=== PATIENT | male | born 1975 ===

== ENCOUNTER 2024-02-06 10:57 | Emergency (ER) | payer SELFPAY ==
[2024-02-06 11:06] VITALS: BP 138/90; PULSE 86; TEMP 36.5; O2SAT 98
--- NOTE | 2024-02-06 13:17 | ED_ITS ---
HPI - Back Pain/Injury 2 General: Chief Complaint: Back Pain/Injury Stated Complaint: Both arms are numb--back pain Time Seen by Provider: 02/06/24 13:16 History of Present Illness: 48-year-old male presents with paresthes ias in his bilateral upper arms for at least the last 3 months. He reports that has been getting worse over the last couple weeks. He reports that it gets worse if he extends his neck backwards. He also complains of some muscle spasms in his back. Patient reports when he sleeps at night his arm numbness gets a lot worse. Patient denies any acute injury. Associated symptoms: Deny abdominal pain, chills, fever(s), nausea or vomiting Related Data Previous Rx's Medication Instructions Recorded cyclobenzaprine 10 mg tablet 10 mg PO BID PRN muscle spasm #20 02/06/24 tabs cyclobenzaprine 10 mg tablet 10 mg PO BID PRN muscle spasm #20 02/06/24 tabs naproxen 500 mg tablet (Naprosyn) 500 mg PO BID PRN pain #30 tabs 02/06/24 naproxen 500 mg tablet (Naprosyn) 500 mg PO Q12H PRN pain #30 tabs 02/06/24 Allergies Allergy/AdvReac Type Severity Reaction Status Date / Time No Known Allergies Allergy Verified 02/06/24 11:09 Review of Systems 2 Const: Denies: fever(s) or chills Card: Denies: chest pain or palpitations Resp: Denies: dyspnea or productive cough GI: Denies: abdominal pain, nausea or vomiting : Denies: flank pain Musc: Reports: neck pain and back pain Neuro: Reports: numbness in extremities (Bilateral upper) Psych: Denies: anxiety or depression Physical Exam 2 Const: COMMON NORMALS: no acute distress, average body habitus and patient oriented x3 HENMT: COMMON NORMALS: normocephalic and atraumatic HEAD & SCALP: n ormocephalic and atraumatic Neck/C-Spine: COMMON NORMALS: supple and no meningeal signs CERVICAL SPINE: No Cervical spine tenderness and Yes Paracervical spasm Cardio: COMMON NORMALS: regular rate and regular rhythm RATE: regular rate RHYTHM: regular rhythm GI: COMMON NORMALS: Soft to palpation and non-tender PALPATION: Yes Soft to palpation Extremity: COMMON NORMALS: normal to inspection and full ROM Neuro: COMMON NORMALS: patient oriented x3, moves all extremities and gait normal MENINGEAL SIGNS: Yes no meningeal signs SPEECH: speech normal S ENSORY EXAM: Yes extremities (Bilateral upper arms, numbness with neck extension) MOTOR EXAM: 5/5 motor strength present throughout Psych: COMMON NORMALS: mental status grossly normal and cooperative Skin: COMMON NORMALS: no rashes or lesions noted GENERAL SKIN EXAM: no rashes or lesions noted Course 2 Vital Signs: Vital signs: Vital Signs Temperature 97.7 F 02/06/24 11:06 Pulse Rate 75 02/06/24 14:39 Respiratory Rate 16 02/06/24 14:39 Blood Pressure 121/78 02/06/24 14:39 Pulse Oximetry 95 02/06/24 14:39 Oxygen Delivery Me thod Room Air 02/06/24 14:39 MDM - Back Pain/Injury Medical Decision Making Patient diagnostic studies were ordered reviewed and no acute findings noted. Patient's x-ray of his neck shows C3-C4 degenerative changes which may be contributing to his discomfort. Discussed with him where this been going on for couple months and worsening he needs to follow-up with primary care provider. They can then determine if they want to start with advanced imaging such as an MRI, consultation with orthopedic or back specialist or physical therapy. Patient will be provided muscle relaxant and anti-inflammatory. I also discussed with him the need for proper pillow to help with posture as well as good posture to help with the symptoms and is at gets worse with extension. Patient was stable and discharged home Labs 02/06/24 13:39 02/06/24 13:39 Radiology Impressions Cervical Spine X-Ray 02/06/24 13:24 IMPRESSION: 1. No acute findings. 2. Mild C3-C4 degenerative change. Laboratory Results WBC 6.72 10^3/uL (3.29-11.43) 02/06/24 13:39 RBC 4.84 10^6/uL (3.85-5.65) 02/06/24 13:39 Hgb 13.60 g/dL (11.27-16.99) 02/06/24 13:39 Hct 41.7 % (37-53) 02/06/24 13:39 MCV 86.2 fl (82-101) 02/06/24 13:39 MCH 28.1 pg (27-33) 02/06/24 13:39 MCHC 32.6 g/dL (30-55) 02/06/24 13:39 RDW 13.0 % (12.1-15.1) 02/06/24 13:39 Plt Count 232 10^3/cmm (157-399) 02/06/24 13:39 MPV 9.3 fL (7.4-10.4) 02/06/24 13:39 Neut % (Auto) 72.8 % 02/06/24 13:39 Lymph % (Auto) 13.7 % 02/06/24 13:39 [place] % (Auto) 9.7 % 02/06/24 13:39 Eos % (Auto) 2.5 % 02/06/24 13:39 Baso % (Auto) 0.9 % 02/06/24 13:39 Neut # (Auto) 4.89 10^3/uL (1.8-7.7) 02/06/24 13:39 Lymph # (Auto) 0.9 10^3/uL (0.8-4.8) 02/06/24 13:39 [place] # (Auto) 0.7 10^3/uL (0.2-0.9) 02/06/24 13:39 Eos # (Auto) 0.2 10^3/uL (0.0-0.8) 02/06/24 13:39 Baso # (Auto) 0.1 10^3/uL (0.0-0.1) 02/06/24 13:39 Nucleated RBC % (auto) 0 % 02/06/24 13:39 Nucleated RBCs # 0.0 /100WBC 02/06/24 13:39 Sodium 136 mmol/L (136-145) 02/06/24 13:39 Potassium 4.6 mmol/L (3.5-5.1) 02/06/24 13:39 Chloride 102 mmol/L (98-107) 02/06/24 13:39 Carbon Dioxide 25 mmol/L (22-29) 02/06/24 13:39 Anion Gap 13.6 (5-19) 02/06/24 13:39 BUN 14 mg/dL (6-20) 02/06/24 13:39 Creatinine 0.6 mg/dL (0.7-1.2) L 02/06/24 13:39 GFR Calculation 142.6 mL/min (90-130) H 02/06/24 13:39 Glucose 96 mg/dL (65-115) 02/06/24 13:39 Calculated Osmolality 282 mOsm/kg (285-295) L 02/06/24 13:39 Calcium 8.0 mg/dL (8.5-10.5) L 02/06/24 13:39 Magnesium 2.1 mg/dL (1.7-2.3) 02/06/24 13:39 TSH 2.09 uIU/mL (0.27-4.20) 02/06/24 13:39 All radiology interpretation(s) finalized by discharge Discharge Plan Discharge Patient Disposition: Home Clinical Impression: Cervical radiculopathy due to degenerative joint disease of spine, Paresthesia and pain of both upper extremities Condition: Stable Prescriptions: New cyclobenzaprine 10 mg tablet 10 mg PO BID PRN (Reason: muscle spasm) Qty: 20 0RF Naprosyn 500 mg tablet 500 mg PO BID PRN (Reason: pain) Qty: 30 0RF naproxen [Naprosyn] 500 mg tablet 500 mg PO Q12H PRN (Reason: pain) Qty: 30 0RF cyclobenzaprine 10 mg tablet 10 mg PO BID PRN (Reason: muscle spasm) Qty: 20 0RF Discharge Orders: Discharge ED (Routine); Ordered 02/06/24 Ordered By: Piyush Treviño Discharge Diet: Usual diet Discharge Activity: Increase activity as tolerated Patient Instructions: Paresthesia (ED), Cervical Radiculopathy (ED), Arthritis (ED), Opioid Safety, Pain Management Activity Restrictions/Additional Instructions: Please establish care with a primary care provider for further outpatient evaluation or follow-up to personal protection specialist for further evaluation. Please consider physical therapy. Please be sure you are using proper posture and a good pillow for neck support. Coding Level of Care Code ED Teaching Manager for Yahir Leahy
--- NOTE | 2024-02-06 13:24 | XRR_ITS ---
PROCEDURE INFORMATION: Exam: XR Cervical Spine Exam date and time: 02/06/2024 2:30 PM Age: 48 years old Clinical indication: Other: Paresthesia TECHNIQUE: Imaging protocol: Radiologic exam of the cervical spine. Views: 2 or 3 views. COMPARISON: No relevant prior studies available. FINDINGS: Bones/joints: Partially obscured C7 vertebra on lateral view from superimposed structures. No acute fracture. Normal alignment. Mild discovertebral degenerative change at C3-C4. Remaining intervertebral disc spaces are preserved. Soft tissues: Unremarkable. XR/XR cervical spine 3V* [id number] IMPRESSION: 1. No acute findings. 2. Mild C3-C4 degenerative change.
[2024-02-06] MEDS: ketorolac 30 mg/mL INJ IM (13:35)
[2024-02-06] MEDS: orphenadrine 30 mg/mL Inj 2 mL 60 MG IM (13:36)
[2024-02-06 14:02] LABS: Basophils # 0.1 10^3/uL (0.0-0.1); Basophils % 0.9 %; Eosinophils # 0.2 10^3/uL (0.0-0.8); Eosinophils % 2.5 %; Hematocrit 41.7 % (37-53); Lymphocytes # 0.9 10^3/uL (0.8-4.8); Lymphocytes % 13.7 %; Mean Corpuscular HGB Conc 32.6 g/dL (30-55); Mean Corpuscular Hemoglobin 28.1 pg (27-33); Mean Corpuscular Volume 86.2 fl (82-101); Mean Platelet Volume 9.3 fL (7.4-10.4); Monocytes # 0.7 10^3/uL (0.2-0.9); Monocytes % 9.7 %; Neutrophils # 4.89 10^3/uL (1.8-7.7); Neutrophils % 72.8 %; Nucleated Red Blood Cells % 0 %; Platelet Count 232 10^3/cmm (157-399); Red Blood Count 4.84 10^6/uL (3.85-5.65); White Blood Count 6.72 10^3/uL (3.29-11.43)
[2024-02-06 14:35] LABS: Anion Gap 13.6 (5-19); Blood Urea Nitrogen 14 mg/dL (6-20); Carbon Dioxide 25 mmol/L (22-29); Chloride 102 mmol/L (98-107); Glomerular Filtration Rate 142.6 mL/min (90-130); Glucose 96 mg/dL (65-115); Magnesium 2.1 mg/dL (1.7-2.3); Osmolality Calculated 282 mOsm/kg (285-295); Potassium 4.6 mmol/L (3.5-5.1); Sodium 136 mmol/L (136-145); Thyroid Stimulating Hormone 2.09 uIU/mL (0.27-4.20)
[2024-02-06 14:39] VITALS: BP 121/78; PULSE 75; RESP 16; O2SAT 95
[2024-02-06 15:51] VITALS: BP 127/83; PULSE 74; RESP 16; O2SAT 95
== END 2024-02-06 15:53 | disposition home or self-care (01) ==
PROVIDERS: Emergency Provider Student in an Organized Health Care Education/Training Program
DX: M47.22 Other spondylosis with radiculopathy, cervical region (principal); R20.2 Paresthesia of skin
CPT/HCPCS: 36415; 72040; 80048; 83735; 84443; 85025; 96372; 99284; J1885; J2360

== ENCOUNTER → 2024-04-12 09:04 | Outpatient (BNVA) | payer BC, MEDICAID, SELFPAY | PROVIDERS: PCP Nurse Practitioner Family; Visit Provider Physician Assistant | DX: G56.03 Carpal tunnel syndrome, bilateral upper limbs (principal); G56.23 Lesion of ulnar nerve, bilateral upper limbs | CPT/HCPCS: 73110 ==

== ENCOUNTER 2024-05-09 07:25 | Outpatient (CLI) | payer MEDICAID, SELFPAY ==
--- NOTE | 2024-05-09 07:15 | MR_ITS ---
WS: [id number] MRI HEAD WITHOUT CONTRAST TECHNIQUE: Sagittal T1, T2 axial, T2 axial FLAIR, axial and coronal T1 images, axial susceptibility w eighted imaging, axial diffusion weighted images, and coronal T2 images were obtained. 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 Oth erwise no evidence of acute ischemia. Few patchy foci of T2 hyperintensity in the LEFT frontal subcortical and parasagittal white matter an d LEFT inferior frontal lobe nonspecific but can be seen with migraine headaches. This is unchanged f rom previous. No significant parenchymal volume loss. No hemosiderin on the susceptibility weighted i mages. Normal optic chiasm and pituitary infundibulum. Temporal lobes and hippocampal formations are normal in appearance. Suggestion of a small amount of T2 hyperintensity in the RIGHT medullary olive. Normal posterior fossa. Normal vascular flow voids at the skull base. No extra-axial fluid collection s. No evidence of mass or mass effect. Mucosal thickening LEFT mastoid tip. Retention cyst RIGHT maxi llary sinus measuring 1.5 cm. Small amount of fluid in the LEFT maxillary sinus. Normal posterior regina opharynx. MR/MR head wo con* [id number] IMPRESSION: 1. Tiny focus of partially restricted diffusion in the RIGHT frontal lobe late rally most likely artifact. Otherwise no evidence of restricted diffusion to villarreal ggest acute ischemia. 2. Few small foci of T2 hyperintensity in the frontal subcortical white matter unchanged from previous nonspecific in a patient this age but can be seen with migraine headaches. 3. Subtle T2 hyperintensity in the RIGHT medullary olive. This can be seen wit h Guillain-Reynolds variant such as BBE. 4. No other acute findings.
== END 2024-05-09 07:26 | disposition home or self-care (01) ==
LOC: RAD 07:26
PROVIDERS: PCP Nurse Practitioner Family; Visit Provider Specialist
DX: G61.0 Guillain-Barre syndrome (principal); G62.89 Other specified polyneuropathies; R93.0 Abnormal findings on diagnostic imaging of skull and head, not elsewhere classified; K11.6 Mucocele of salivary gland
CPT/HCPCS: 70551

== ENCOUNTER 2024-05-14 12:40 | Day surgery (SDC) | payer BC, MEDICAID, SELFPAY ==
[2024-05-14] VITALS (12 sets, daily range): BP systolic 117–142; BP diastolic 73–98; PULSE 60–84; RESP 11–18; TEMP 36.1–36.9; O2SAT 96–99; BMI 32.3
--- NOTE | 2024-05-14 13:13 | P.HP_ITS ---
Same Day Surgery H&P Indication for Procedure/HPI DATE OF PROCEDURE: May 14, 2024 CHIEF COMPLAINT/INDICATIONFOR SURGICAL PROCEDURE: Right carpal tunnel syndrome, right cubital tunnel syndrome PREOP DIAGNOSIS: Right carpal tunnel syndrome, right cubital tunnel syndrome PLANNED PROCEDURE: Operation Date: 05/14/24 15:05 Proposed Procedures p Carpal Tunnel Release(Right) - Garrett Jovani, DO s Cubital Tunnel Release(Right) - Garrett [place]oyelles, DO s Ulnar Nerve Transposition(Right) - Garrett Jovani, DO Medications/Allergies* Allergies/Adverse Reactions Allergy/AdvReac Type Severity Reaction Status Date / Time No Known Allergies Allergy Verified 05/04/24 15:52 Pertinent History/Comorbid Conditions* Social History Smoking and tobacco/nicotine status: current every day tobacco/nicotine user (1/2 PPD) cigarettes Alcohol intake: never Substance/Drug Use: never Adopted: No Caregiver/support person: No Lives independently: No service: No Current occupational status: employed Do you think of yourself as: Straight/Heterosexual Current gender identity: Male Pertinent Exam Findings alert, oriented x 3, operative site marked and procedure specific exam findings Patient had a significantly positive Tinel's over the right carpal tunnel syndrome and the right cubital tunnel syndrome. Patient complains of all 5 of his fingers going numb. Please refer to the detailed orthopedic examination on 04/12/2024 listed below: bilateral Hand exam-positive Tinel's and positive Phalen's test. mild thenar atrophy and thenar muscle weakness detected. Full range of motion in fingers and wrist and fingers are warm and well-perfused with normal cap refill under 2 seconds. Radial pulse 2+, intrinsic muscle weakness noted. Bilateral Elbow exam-negative Tinel's test and positive elbow flexion test. Recommendations Surgery/Procedure today Other Plans: Plan to proceed to the OR today for right carpal tunnel release and right cubital tunnel release with possible nerve transposition. Patient understands the ins and outs procedure the risk benefits complication alternatives surgery and through shared decision-making elects proceed with surgical invention. All questions answered at this time. Coding Level of Care Code Acute Code for Yahir Tosin
[2024-05-14] MEDS: acetaminophen 1,000 MG/100 ML PIGGYBACK 400 MG IV (13:21)
[2024-05-14] MEDS: sodium chloride 0.9% 1,000 ML 30 ML IV (13:37)
--- NOTE | 2024-05-14 13:39 | P.ANESASSM_ITS ---
Pre-Anesthetic Assessment Height/Weight: Height 5 ft 6 in Weight 200 lb Temp Pulse Resp BP Pulse Ox O2 Del Method O2 Flow Rate 98.4 F 75 16 133/83 98 Nasal Cannula 4 05/14/24 13:07 05/14/24 13:31 05/14/24 13:31 05/14/24 13:31 05/14/24 13:31 05/14/24 13:31 05/14/24 13:31 Preop Diagnosis: Right carpal tunnel syndrome, right cubital tunnel syndrome Operation Date: 05/14/24 15:05 Proposed Procedures p Carpal Tunnel Release(Right) - Garrett Chenango, DO s Cubital Tunnel Release(Right) - Garrett Chenango, DO s Ulnar Nerve Transposition(Right) - Garrett Jovani, DO Was Beta Alley taken within 24 hours: N/A Was Clonidine taken within 24 hours: N/A Last intake: Intake Last Liquid Date 05/14/24 Last Liquid Time 09:30 Last Solid Date 05/13/24 Last Solid Time 20:00 Social Alcohol and Tobacco Smokes nicotine and marijuana, occasional alcohol use Exam alert, oriented x 3, clear to auscultation bilaterally and regular rate & rhythm Airway Submandibular: within normal limits Cervical ROM: within normal limits Mallampati: Class II Dentition: full Anesthetic Plan ASA status: 2 Anesthesia: General and Regional (specify below) Other: No prior issues with anesthesia NPO since yesterday Current everyday smoker, nicotine and marijuana Denies any cardiac issues METs greater than 4 Plan for general anesthesia with preop nerve block Medications/Allergies Home Medications Medication Instructions Recorded Confirmed Last Taken Type cyclobenzaprine 10 mg tablet 10 mg PO BID PRN muscle spasm #20 02/06/24 05/10/24 05/08/24 Rx tabs naproxen 500 mg tablet (Naprosyn) 500 mg PO BID PRN pain #30 tabs 02/06/24 05/14/24 05/10/24 Rx Allergies Allergy/AdvReac Type Severity Reaction Status Date / Time No Known Allergies Allergy Verified 05/04/24 15:52 Current Medications Generic Name Dose Route Start Last Admin Trade Name Freq PRN Reason Stop Dose Admin Sodium Chloride 1,000 mls @ 30 mls/hr 05/14/24 13:00 05/14/24 13:37 Sodium Chloride 0.9% IV 05/15/24 12:59 30 mls/hr .Q24H VALE Administration PFSH Anesthesia Social History Smoking and tobacco/nicotine status: current every day tobacco/nicotine user (1/2 PPD) cigarettes Alcohol intake: never Substance/Drug Use: never Adopted: No Caregiver/support person: No Lives independently: No service: No Current occupational status: employed Do you think of yourself as: Straight/Heterosexual Current gender identity: Male Data Anesthesia Cardiac Studies: No Data to Display
--- NOTE | 2024-05-14 13:39 | SUR.PREOP ---
13:30 RIGHT INTERSCALENE NERVE BLOCK PERFORMED BY DOCTOR HUGHES, USING 30mL OF 5% ROPIVACAINE. PT ON VARIETY LATHE OPERATOR SHOWING NSR, AND O2 AT 4 L/M VIA NASAL CANNULA. PT TOLERATED PROCEDURE WELL.
--- NOTE | 2024-05-14 13:42 | ANES.PROC ---
Anesthesia Procedures Procedure/Date: 05/14/24 Nerve Block ^: Nerve Block 1: Main Anesthesia: other (fentanyl 100mcg, 2mg versed) Time Out Performed: Yes Consent: requested by attending/covering physician and from patient Nerve block location: supraclavicular Anesthesia monitors applied: pulse oximetry, EKG, BP cuff and oxygen Nerve block position: supine Anesthetic Used: ropivicaine 0.5% Amount of anesthesia used (mL): 30 Ultrasound used to: recognize landmarks Nerve Stimulator Used?: Yes Interscalene/Femoral BLK: other needle (pjunk 4inch) Injection: neg aspiration of heme Patient Tolerated Procedure: well Complications: none
[2024-05-14] MEDS: ceFAZolin 2,000 MG in sodium chloride 0.9% (plus) 50 ML 100 MG IV (13:43)
[2024-05-14] MEDS: ROPivacaine 0.5% SDV 30 mL 150 MG INJECTION (14:27)
[2024-05-14] MEDS: lidocaine-epi 1% PF 1:200,000 30 mL SDV INJECTION (14:27)
--- NOTE | 2024-05-14 14:31 | P.OP_ITS ---
Operative Report Date of procedure: May 14, 2024 Surgeon: Garrett Hahn DO [employer]roll Human Resources Assistant: Bill Hahn PA-C: PA was necessary for assistance in this case with hand positioning to execute the procedure, retraction and protection of neurovascular structures as well as to assist with wound closure and dressing application. Procedure: Preoperative diagnosis: Right carpal tunnel syndrome, right cubital tunnel syndrome Postoperative diagnosis: Same Procedure done: Right carpal tunnel release Right?cubital tunnel tunnel release (ulnar nerve decompression at elbow) Surgeon: Garrett Hahn DO Estimated blood loss: 10 mL Tourniquet- 17minutes IV fluids: 900 mL Complications: None Findings: See operative report narrative Condition: stable Disposition: same day Brief History: Patient's been seen and worked up in the outpatient setting and findings consistent with preoperative diagnosis.? Patient has right carpal tunnel syndrome as well as right?cubital tunnel syndrome which has been worked up in the outpatient setting has physical exam findings consistent with this as well as confirmatory nerve conduction/EMG nerve conduction study consistent with diagnosis. Nerve study showed normal ulnar nerves however he was positive on physical exam findings and complaint of ulnar nerve paresthesias as well as median nerve paresthesias. As result through shared decision making agreed to proceed with? right carpal tunnel and right?cubital tunnel release with possible nerve transposition . we talked about treatment options as far as nonoperative a nd operative intervention.? Understands risk benefits complication alternatives surgical nonsurgical treatment options.? Understanding his risks he agrees to proceed with surgical intervention. Understanding these risks he agrees to proceed with surgery.? Consent obtained. Procedure: Patient seen evaluate in the preoperative holding area.? Consent was reviewed and signed with patient.? Correct extremity marked.? Patient seen evaluated by anesthesia department once cleared for surgery was then taken back to the operative suite placed in supine position all bony prominences well-padded pat ient properly secured to bed.? right upper extremity placed onto armboard.? Nonsterile tourniquet applied right upper arm.? Patient then underwent anesthesia per the anesthesia department.? Patient's right upper extremity was then prepped and draped in standard orthopedic fashion.? Final timeout performed.? Patient received appropriate preoperative antibiotics. Esmarch was used exsanguinate the right upper extremity.? Tourniquet was insufflated to 250 mmHg. I started with the right carpal tunnel release first.? I made a standard open carpal tunnel release starting with the distal most extent in the palm at the Mcnulty's cardinal line and the incision line was made in line with the fourth ray and ended just distal to the wrist crease.? Sharp scalpel incision was made through skin and subcutaneous tissue I then utilizing self retainer then began to dissect with dissection scissors split longitudinally the palmar fascia.? Next I then utilizing my transportation assistant Mauricedamesha retractors subsequently utilizing scalpel feathered through the palmaris brevis as well as through the transverse carpal ligament distally.? Once I encountered the floor of the transverse carpal ligament and entered into the carpal tunnel I then switched to dissection scissors.? Carefully released the distal extent of the transverse carpal ligament to the palmar fat.? Care was to protect the recurrent branch and not in jured this during this part of the case.? Next I then placed a Ferrum underneath the transverse carpal ligament proximally to protect the nerve in the carpal tunnel contents.? And then I subsequently under loupe magnification utilize my dissection scissors to release the transverse carpal ligament into the antebrachial fascia under direct visualization with care to keep my scissors with a curved ulnarly away from the palmar cutaneous branch.? The transverse carpal was then completely decompressed proximally and a Ferrum was then placed both distally and proximally throughout the carpal tunnel and had complete decompression of the nerve.? The nerve did appear to have hourglass shape as it went through the carpal tunnel.? With significant irritation noted around the nerve.? No masses were noted within the contents of the carpal tunnel.? This completed the carpal tunnel release and then I subsequently irrigated the wound bed and placed a wet Ray-Romaine into the incision for later closure. Next marked out the landmarks of the right elbow of the medial epicondyle and olecranon and made a curvilinear incision following the course of the ulnar nerve at the medial aspect of the elbow.? Sharp scalpel incision was made through skin and subcutaneous tissue.? Next I switched to Littler dissection scissors and spread in plane of the medial antebrachial cutaneous nerve branching which was protected throughout this part of the dissection.? Then I directly came down over the fascia and identified the 2 heads of the FCU fascia and split this in the middle and subsequently identified my ulnar nerve distally.? This was then completely released distally under direct visualization and loupe magnification.? Once the nerve was then identified I then subsequently tracked this proximally and released this through Rae's ligament as well as complete decompression of the nerve proximally all the way past the intermuscular septum.? The nerve was completely released and decompressed both proximally and distally.? Ulnar nerve neurolysis performed and completed both proximally and distally with dissection scissors.? I then took the elbow through range of motion and there was no instability or subluxating of the ulnar nerve.? This completed?cubital tunnel release.? Next the wound bed was thoroughly irrigated.? Tourniquet was deflated.? Hemostasis was satisfactory at the?cubital tunnel release surgery site. I then inspected the carpal tunnel incision and this was found to have satisfactory hemostasis and all this was maintained through bipolar electrocautery.? At this point time I sequentially closed?cubital tunnel site with 3-0 Vicryl suture in a running horizontal mattress nylon stitch.? ? The carpal tunnel release surgery was then closed in standard interrupted mattress fashion.? Dressing was Xeroform 4 x 4's ABD Curlex soft roll and an Tez wrap has a bulky soft dressing. Patient was then awakened from anesthesia and taken to PACU in stable condition. Disposition: Patient taken to PACU in stable condition recovering well.? Patient will receive appropriate discharge instructions as well as pain medication postoperatively.? We will follow-up with Ortho in the office in 2 weeks.? Patient understands agrees with current plan.? All questions answered.? He understands if any questions or concerns and contact the office for follow-up appointment..
--- NOTE | 2024-05-14 14:42 | W.PM.BPON ---
Date of Procedure: [May 14, 2024] Surgeon: [Dr. Jovani DO] Pouch Making Machine Operator(s): [Bill cooper PA-C] Procedure(s) performed: [Right carpal tunnel release and right cubital tunnel release] Findings of the procedure(s): [Right carpal tunnel syndrome and right cubital tunnel syndrome. No ulnar nerve subluxation. Procedure went well and as planned] Estimated blood loss: [10 mL] Specimen(s) removed: [N/A] Post-operative diagnosis: [Right carpal tunnel syndrome and right cubital tunnel syndrome]
--- NOTE | 2024-05-14 14:51 | PM.PACU ---
PACU note Narrative: Patient is a 48-year-old male that just underwent a right carpal tunnel release right cubital tunnel release. Patient transferred to PACU in stable condition. Pain is well controlled. Dressing on hand is dry and in place. Patient's fingers are warm and well-perfused. normal cap refill under 2 seconds. Unable to assess further motor and sensation due to residual block. Exam: awake Disposition: discharged
== END 2024-05-14 16:16 | disposition home or self-care (01) ==
PROVIDERS: PCP Nurse Practitioner Family; Visit Provider Student in an Organized Health Care Education/Training Program
PROC: (CPT 64721; principal; 2024-05-14 14:55)
PROC: (CPT 64718; 2024-05-14 14:55)
PROC: (CPT 64718; 2024-05-14 14:55)
DX: G56.01 Carpal tunnel syndrome, right upper limb (principal); G56.21 Lesion of ulnar nerve, right upper limb; F17.210 Nicotine dependence, cigarettes, uncomplicated
CPT/HCPCS: 64718; 64721; J0131; J0690; J2704; J2795; J7030

== ENCOUNTER 2024-06-28 05:42 | Day surgery (SDC) | payer BC, MEDICAID, SELFPAY ==
[2024-06-28] VITALS (12 sets, daily range): BP systolic 116–150; BP diastolic 77–103; PULSE 79–93; RESP 16–19; TEMP 36.1–36.4; O2SAT 94–100
[2024-06-28] MEDS: sodium chloride 0.9% 1,000 ML 30 ML IV (06:28)
[2024-06-28] MEDS: acetaminophen 1,000 MG/100 ML PIGGYBACK 400 MG IV (06:29)
[2024-06-28] MEDS: scopolamine 1 mg PATCH 1 PATCH TRANSDERMA (06:31)
[2024-06-28] MEDS: ketorolac 30 mg/mL INJ IVP (06:35)
--- NOTE | 2024-06-28 06:50 | P.ANESASSM_ITS ---
Pre-Anesthetic Assessment Height/Weight: Height 1.68 m Weight 90.718 kg Temp Pulse Resp BP Pulse Ox O2 Del Method 97.4 F L 84 16 150/103 97 Room Air 06/28/24 06:07 06/28/24 06:07 06/28/24 06:07 06/28/24 06:07 06/28/24 06:07 06/28/24 06:07 Operation Date: 06/28/24 07:00 Proposed Procedures p Carpal Tunnel Release(Left) - Garrett Jovani, DO s Cubital Tunnel Release(Left) - Garrett Leelanau, DO s Ulnar Nerve Transposition(Left) - Garrett Leelanau, DO Familial anesthetic complications: None Was Beta Alley taken within 24 hours: N/A Was Clonidine taken within 24 hours: N/A Last intake: Intake Last Liquid Date 06/27/24 Last Liquid Time 22:00 Last Solid Date 06/27/24 Last Solid Time 15:30 Social Alcohol and Tobacco Marijuana use Exam alert, oriented x 3, clear to auscultation bilaterally and regular rate & rhythm Airway Mallampati: Class IV Dentition: full Neuropsych Neuropathy Anesthetic Plan ASA status: 2 Anesthesia: General and Regional (specify below) Risk of > 500 ml blood loss (7ml/kg in children): No Medications/Allergies Home Medications ?Medication ?Instructions ?Recorded ?Confirmed ?Last Taken ?Type No Known Home Medications 05/30/2411/14 Unknown History Allergies Allergy/AdvReac Type Severity Reaction Status Date / Time No Known Allergies Allergy Verified 06/21/24 12:09 Current Medications Generic Name Dose Route Start Last Admin Trade Name Freq PRN Reason Stop Dose Admin Sodium Chloride 1,000 mls @ 30 mls/hr 06/28/24 06:00 06/28/24 06:28 Sodium Chloride 0.9% IV 06/29/24 05:59 30 mls/hr .Q24H VALE Administration PFSH Anesthesia Social History Smoking and tobacco/nicotine status: current every day tobacco/nicotine user (1/2 PPD) cigarettes Alcohol intake: never Substance/Drug Use: never Adopted: No Caregiver/support person: No Lives independently: No Marital status: Legally service: No Current occupational status: employed Do you think of yourself as: Straight/Heterosexual Current gender identity: Male Data Anesthesia Cardiac Studies: No Data to Display
--- NOTE | 2024-06-28 06:50 | ANES.PROC ---
Anesthesia Procedures Procedure/Date: 06/28/24 Nerve Block ^: Nerve Block 1: Main Anesthesia: general anesthesia Time Out Performed: Yes Consent: requested by attending/covering physician, from patient, from other, risks and benefits reviewed and patient agrees to proceed Nerve block location: supraclavicular (L) Anesthesia monitors applied: pulse oximetry, EKG, BP cuff and oxygen Nerve block position: semi sitting Anesthetic Used: ropivicaine 0.5% (25 ml) and with decadron (4 mg) Ultrasound used to: recognize landmarks, visualize and ID brachial plexus and in supraclavicular region Nerve Stimulator Used?: No Interscalene/Femoral BLK: 4 stimuplex 21 g needle used for position and inplane approach, visualize local anesthetic spread and no vascular puncture identified Injection: neg aspiration of heme Patient Tolerated Procedure: well Complications: none
--- NOTE | 2024-06-28 06:57 | W.PM.OPSUD ---
Surgery/Procedure H&P Update DATE OF PROCEDURE: June 28, 2024 DATE H&P PERFORMED: 05/30/24 H&P UPDATE INFORMATION: I have reviewed H&P completed within last 30 days, I have examined patient prior to procedure and No changes to prior documentation PREOP DIAGNOSIS: Left carpal tunnel syndrome, left cubital tunnel syndrome PRIMARY INDICATION FOR PROCEDURE: Left carpal tunnel syndrome, left cubital tunnel syndrome PLANNED PROCEDURE: Operation Date: 06/28/24 07:00 Proposed Procedures p Carpal Tunnel Release(Left) - DO jeffrey Evans Cubital Tunnel Release(Left) - DO jeffrey Evans Ulnar Nerve Transposition(Left) - Garrett Hahn DO
[2024-06-28] MEDS: ceFAZolin 2,000 MG in sodium chloride 0.9% (plus) 50 ML 100 MG IV (07:01)
--- NOTE | 2024-06-28 07:56 | P.BOP_ITS ---
Date of Procedure: 06/28/2024 Surgeon: Garrett Hahn DO Production Service Manager(s): None Procedure(s) performed: Left carpal tunnel release Left cubital tunnel release (ulnar nerve decompression at the elbow) Findings of the procedure(s): Patient was found to have left carpal tunnel syn drome and left cubital tunnel syndrome underwent procedure as planned without issues or complications no evidence of subluxation of the ulnar nerve. Estimated blood loss: 5 mL Specimen(s) removed: None Post-operative diagnosis: Left carpal tunnel syndrome, left cubital tunnel syndrome
--- NOTE | 2024-06-28 07:58 | P.OP_ITS ---
Operative Report Date of procedure: June 28, 2024 Surgeon: Garrett Hahn DO Procedure: Preoperative diagnosis: Left carpal tunnel syndrome Left cubital tunnel syndrome Postop Diagnosis: Same Procedure done: Left carpal tunnel release Left?cubital tunnel tunnel release (ulnar nerve decompression at elbow) Surgeon: Garrett Hahn DO Estimated blood loss: 5mL Tourniquet? 17 minutes IV fluids: 700 mL Complications: None Findings: See operative report narrative Condition: stable Disposition: same day Brief History: Patient's been seen and worked up in the outpatient setting and findings co nsistent with preoperative diagnosis.? Patient has Left carpal tunnel syndrome as well as Left?cubital tunnel syndrome which has been worked up in the outpatient setting has physical exam findings consistent with this as well as confirmatory nerve conduction/EMG nerve conduction study consistent with diagnosis.? Patient's failed conservative treatment.? As result through shared decision making agreed to proceed with? Left carpal tunnel and Left?cubital tunnel release With possible ulnar nerve transposition. we talked about treatment options as far as nonoperative and operative intervention.? U nderstands risk benefits complication alternatives surgical nonsurgical treatment options.? Understanding his risks he agrees to proceed with surgical intervention. Understanding these risks he agrees to proceed with surgery.? Consent obtained in preop. Procedure: Patient seen evaluate in the preoperative holding area.? Consent was reviewed and signed with patient.? Correct extremity marked.? Patient seen evaluated by anesthesia department once cleared for surgery was then taken back to the operative suite placed in supine position all bony prominences well-padded patient properly secured to bed.? Left upper extremity placed onto armboard.? Nonsterile tourniquet applied Left upper arm.? Patient then underwent anesthesia per the anesthesia department.? Patient's Left upper extremity was then prepped and draped in standard orthopedic fashion.? Final timeout performed.? Patient received appropriate preoperative antibiotics. Esmarch was used exsanguinate the Left upper extremity.? Tourniquet was insufflated to 250 mmHg. I started with the carpal tunnel release first.? I made a standard open carpal tunnel release starting with the distal most extent in the palm at the Mcnulty's cardinal line and the incision line was made in line with the fourth ray and ended just distal to the wrist crease.? Sharp scalpel incision was made through skin and subcutaneous tissue I then utilizing self retainer then began to dissect with dissection scissors split longitudinally the palmar fascia.? Next I then utilizing my assistant property manager Rosita retractors subsequently utilizing scalpel feathered through the palmaris brevis as well as through the transverse carpal ligament distally.? Once I encountered the floor of the transverse carpal ligament and entered into the carpal tunnel I then switched to dissection scissors.? Carefully released the distal extent of the transverse carpal ligament to the palmar fat.? Care was to protect the recurrent branch and not injured this during this part of the case.? Next I then placed a [place] underneath the transverse carpal ligament proximally to protect the nerve in the carpal tunnel contents.? And then I subsequently under loupe magnification utili ze my dissection scissors to release the transverse carpal ligament into the antebrachial fascia under direct visualization with care to keep my scissors with a curved ulnarly away from the palmar cutaneous branch.? The transverse carpal was then completely decompressed proximally and a [place] was then placed both distally and proximally throughout the carpal tunnel and had complete decompression of the nerve.? The nerve did appear to have hourglass shape as it went through the carpal tunnel.? With significant irritation noted around the nerve.? No masses were noted within the contents of the carpal tunnel.? This completed the carpal tunnel release and then I subsequently irrigated the wound bed and placed a wet Ray-Romaine into the incision for later closure. Next marked out the landmarks of the Left elbow of the medial epicondyle and olecranon and made a curvilinear incision following the course of the ulnar nerve at the medial aspect of the elbow.? Sharp scalpel incision was made throu gh skin and subcutaneous tissue.? Next I switched to Littler dissection scissors and spread in plane of the medial antebrachial cutaneous nerve branching which was protected throughout this part of the dissection.? Then I directly came down over the fascia and identified the 2 heads of the FCU fascia and split this Left in the middle and subsequently identified my ulnar nerve distally.? This was t hen completely released distally under direct visualization and loupe magnification.? Once the nerve was then identified I then subsequently tracked this proximally and released this through Rae's ligament as well as complete decompression of the nerve proximally all the way past the intermuscular septum.? The nerve was completely released and decompressed both proximally and distally.? Ulnar nerve neurolysis performed and completed both proximally and distally with dissection scissors.? I then took the elbow through range of motion and there was no instability or subluxating of the ulnar nerve.? This completed?cubital tunnel release.? ?Next the wound bed was thoroughly irrigated.? Tourniquet was deflated.? Hemostasis was satisfactory at the?cubital tunnel release surgery site. I then inspected the carpal tunnel incision and this was found to have satisfactory hemostasis and all this was maintained through bipolar electrocautery.? At this point time I sequentially closed?cubital tunnel site with 3-0 Vicryl suture in a running horizontal mattress nylon stitch.? ? The carpal tunnel release surgery was then closed in standard interrupted mattress fashion.? Dressing was Xeroform 4 x 4's ABD Curlex soft roll and an Tez wrap has a bulky soft dressing. Patient was then awakened from anesthesia and taken to PACU in stable condition. Disposition: Patient taken to PACU in stable condition recovering well.? Patient will receive appropriate discharge instructions as well as pain medication postoperatively.? We will follow-up with me in the office in 2 weeks.? Patient understands agrees with current plan.? All questions answered.? He understands if any questions or concerns and contact the office for follow-up appointment..
--- NOTE | 2024-06-28 08:09 | PM.PACU ---
PACU note Narrative: Patient is a 48-year-old male just underwent a left carpal tunnel and left cubital tunnel release. Patient transferred to PACU in stable condition. Pain is well controlled. Dressing on hand is dry and in place. Patient's fingers are warm and well-perfused. normal cap refill under 2 seconds. Unable to further assess motor and sensation due to patient still being under anesthesia. Exam: unarousable Disposition: discharged
[2024-06-28] MEDS: HYDROcodone-acetaminophen 5-325 mg Tablet 1 TAB PO (09:03)
--- NOTE | 2024-06-28 13:05 | ANE.PACU2 ---
Inpatient post-anesthesia follow up: Airway intact: Yes Vital signs: Temperature 97.0 F Pulse Rate 87 Respiratory Rate 16 Blood Pressure 116/78 Pulse Oximetry 96 Oxygen Delivery Me thod Room Air Oxygen Flow Rate 6 Fraction of Inspir ed Oxygen Hydration adequate: Yes Nausea and vomiting: Yes Pain level: 1 Mental status: Baseline
== END 2024-06-28 09:20 | disposition home or self-care (01) ==
PROVIDERS: PCP Nurse Practitioner Family; Visit Provider Student in an Organized Health Care Education/Training Program
PROC: (CPT 64721; principal; 2024-06-28 07:00)
PROC: (CPT 64718; 2024-06-28 07:00)
DX: G56.02 Carpal tunnel syndrome, left upper limb (principal); G56.22 Lesion of ulnar nerve, left upper limb; F17.210 Nicotine dependence, cigarettes, uncomplicated
CPT/HCPCS: 64718; 64721; J0131; J0690; J1100; J1885; J2250; J2405; J2704; J2795; J3010; J3490; J7030

== ENCOUNTER 2024-06-30 15:45 | Emergency (ER) | payer BC, MEDICAID, SELFPAY ==
[2024-06-30 15:49] VITALS: BP 160/101; PULSE 96; RESP 18; TEMP 36.8; O2SAT 99; BMI 32.3
--- NOTE | 2024-06-30 16:07 | ED_ITS ---
HPI - Extremity Problem General: Chief complaint: Extremity Injury, Upper Stated complaint: left arm post ob Time Seen by Provider: 06/30/24 15:58 History of Present Illness: 48-year-old male presents emergency room with complaint of left arm discomfort postoperatively. He had a left ulnar nerve transplantation along with a left carpal tunnel release. This was done couple of days ago by Dr. Hahn. He is complaining of some sensation of coolness to his left hand. He still has the wrap in place he has not had any fever sweats or chills Related Data Previous Rx's ?Medication ?Instructions ?Recorded hydrocodone 5 mg-acetaminophen 325 1 tab PO Q6H PRN pa in 5 days #20 06/28/24 mg tablet tabs ondansetron 4 mg disintegrating 4 mg PO Q8H PRN nausea and 06/28/24 tablet vomiting 3 days #9 tabs Allergies Allergy/AdvReac Type Severity Reaction Status Date / Time No Known Allergies Allergy Verified 06/21/24 12:09 [facility] ED PFSH: Social History Smoking and tobacco/nicotine status: current every day tobacco/nicotine user (1/2 PPD) cigarettes Alcohol intake: never Substance/Drug Use: never Adopted: No Caregiver/support person: No Lives independently: No Marital status: Legally service: No Current occupational status: employed Do you think of yourself as: Straight/Heterosexual Current gender identity: Male Physical Exam Extremity: OTHER: Examination of the left hand the wound at the elbow and at the site of the carpal tunnel release do not show any signs of dehiscence infection or drainage. Patient has good capillary refill good ulnar and radial pulses. No redness no erythema there is slight swelling generalized to the hand but no pitting edema. Course Vital Signs: Vital signs: Vital Signs Temperature 98.2 F 06/30/24 15:49 Pulse Rate 93 06/30/24 16:18 Respiratory Rate 18 06/30/24 16:18 Blood Pressure 143/101 06/30/24 16:18 Pulse Oximetry 97 06/30/24 16:18 Oxygen Delivery Me thod Room Air 06/30/24 15:49 MDM - Extremity (Nontraumatic) Medical Decision Making Some of the sensation alteration may be from the surgery itself is just part of her routine postop issues after surgical manipulation of the nerve some of it may also be just positioning he does have a little bit more swelling in the hand that I would expect but not significant amounts. He has good vasculature good capillary refill overall neurovascularly intact he has good sensation although slightly altered from when compared to the right. At this point we will rewrap the wounds Beverly have him elevate whenever possible but not recommend heat but he can put something on the hand to keep it from becoming cold. Keep his regular appointment with Dr. Hahn continue the same restrictions he was given at the time of discharge. No radiology studies performed this visit Discharge Plan Discharge Patient Disposition: Home Clinical Impression: Post-operative state Condition: Stable Prescriptions: No Action hydrocodone-acetaminophen 5-325 mg tablet 1 tab PO Q6H PRN (Reason: pain) 5 Days Qty: 20 0RF ondansetron 4 mg tablet,disintegrating 4 mg PO Q8H PRN (Reason: nausea and vomiting) 3 Days Qty: 9 0RF Discharge Orders: Discharge ED (Routine); Ordered 06/30/24 Ordered By: Venkat Cantu Referrals: Miracle Jason FNP [Primary Care Provider] - Discharge Diet: Usual diet Discharge Activity: Limit activity as instructed Patient Instructions: Opioid Safety, Pain Management Activity Restrictions/Additional Instructions: Thank you for choosing [facility] for your healthcare needs today. It is very important that you follow up as instructed or that you return to the Emergency Department should you have concerns or if your condition changes or worsens in any way. You were seen in the emergency room after your surgeries earlier this week. You are concerned about your left hand. On exam he have good pulses good capillary refill. There is mild swelling in the hand. There is no sign of infection or breakdown of the wound. Recommend elevating the hand whenever possible to minimize swelling. Avoid using direct heat sources on either of the incision sites as that will increase of swelling and discomfort. Follow the discharge instructions you are given by Dr. Hahn after your surgery. If you have further problems contact Dr. Hahn, keep your follow-up appointment as previously scheduled Print Language: Wolof Coding Level of Care Code ED Irrigator Overhead for Yahir Leahy
[2024-06-30 16:18] VITALS: BP 143/101; PULSE 93; RESP 18; O2SAT 97
[2024-06-30 16:40] VITALS: BP 152/91; PULSE 86; RESP 16; O2SAT 95
== END 2024-06-30 16:42 | disposition home or self-care (01) ==
PROVIDERS: Emergency Provider Family Medicine; PCP Nurse Practitioner Family
DX: G89.18 Other acute postprocedural pain (principal)
CPT/HCPCS: 99283

== ENCOUNTER → 2025-02-20 10:28 | Outpatient (BNVA) | payer BC, MEDICAID, SELFPAY | PROVIDERS: PCP Nurse Practitioner Family; Visit Provider Physician Assistant | DX: M25.532 Pain in left wrist (principal); R20.2 Paresthesia of skin; Z98.890 Other specified postprocedural states | CPT/HCPCS: 73110 ==